=== PATIENT | male | born 1955 | race Caucasian/White ===

== ENCOUNTER 2016-12-05 10:45 | Day surgery (SDC) | payer OTHER ==
[~2016-12-05] VITALS: Ht 177.8 cm; Wt 95.4 kg
--- NOTE | ~2016-12-05 | OR ---
PATIENT'S NAME: CAROLIN PORTER [facility] AGE: 61 Y [address] ROOM: [place] [address] LOCATION: [facility] ADMIT DATE: 12/05/2016 OR/Procedure Report DISCHARGE DATE: FAMILY PHYSICIAN: J Luis Henriquez MD ATTENDING PHYSICIAN: Emily Grover SURGEON: Emily Grover MD CLOTH INSPECTOR: DATE OF PROCEDURE: 12/05/2016 PREOPERATIVE DIAGNOSES: 1. Benign prostatic hypertrophy with lower urinary tract symptoms. 2. Bladder stone. POSTOPERATIVE DIAGNOSES: 1. Benign prostatic hypertrophy with lower urinary tract symptoms. 2. Bladder stone. PROCEDURES PERFORMED: 1. Cystoscopy and lithotripsy of bladder stone. 2. TURP. ANESTHESIA: General. COMPLICATIONS: None. INDICATION FOR PROCEDURE: The patient is a 61-year-old male with prostatic enlargement, complaining of obstructive voiding symptoms. Cystoscopy revealed a 2 cm bladder stone and moderate prostatic enlargement. DETAILS OF PROCEDURE: After informed consent obtained, the patient was taken to the operating room. A general anesthetic was applied. He was placed in the dorsal lithotomy position. The groin area was prepped and draped in normal sterile fashion. Cystoscope was introduced into the urethra and bladder without difficulty. The large bladder stone was visualized. I then introduced a CyberWand, which was then used to fragment the stone into smaller pieces and also sucked out the smaller pieces. I continued this for some time until the stone was fragmented into smaller pieces. I then introduced a cystoscope and irrigated out the fragments. The patient started significant prostatic bleeding, which limited my ability to see in the bladder to check for further stones. At this point, we decided to proceed with TURP to control bleeding. We began with resection. The resectoscope sheath was introduced followed by the resectoscope. Resection was begun at the floor of the prostate down to the level of the verumontanum. I then resected lateral lobes. The patient has significant arterial bleeding, which was controlled with fulguration. I then continued further resection, but again the patient PATIENT'S NAME: CAROLIN PORTER [facility] AGE: 61 Y [address] ROOM: [place] [address] LOCATION: [facility] ADMIT DATE: 12/05/2016 OR/Procedure Report DISCHARGE DATE: FAMILY PHYSICIAN: J Luis Henriquez MD ATTENDING PHYSICIAN: Emily Grover was noted to have significant arterial bleeding, which was fulgurated. After some effort, I was able to get a good voiding channel, but because of excessive bleeding, it was decided to terminate the procedure. The bleeders were fulgurated. I then placed a 24-Swiss 3-way Brooks catheter on traction. This controlled the remaining bleeding and his urine was pink with continuous bladder irrigation. The patient tolerated this procedure well. The patient was transferred to recovery room in good condition. MD JAQUELINE JUSTICE/lissa /[id number] CC: J Luis Henriquez MD d: 12/05/16 2103 t: 12/17/16 1158, OPERATIVE SUMMARY
[~2016-12-05 10:45] MED LIST: BENADRYL25 MG PO; FLOMAX0.4 MG PO; GLUCOPHAGE1000 MG PO; HYTRIN UD5 MG PO; PRINIVIL (ZESTR20 MG PO
--- NOTE | 2016-12-06 00:31 | NUR ---
SIGNIFICANT EVENT: Patient alert & oriented. Some hypertension with pain - 133 to 155 over 62 to 70, other VSS. Started on 2L of O2 at 2114 to achieve 93%. Daisetta x2 so far this shift - last at 2099. Sanctura given at approx 2099 with noted relief. CBI running, fabian draining light pink to red urine with occasional small clots. Bedrest. ADA diet. Pleasant and cooperative with cares.
[2016-12-06 04:52] LABS: BASOPHIL # 0.1 K/uL (0.0-0.2); BASOPHIL % 0.8 %; EOSINOPHIL # 0.1 K/uL (0.0-0.5); EOSINOPHIL % 2.3 %; HEMATOCRIT 41.5 % (37.0-53.0); HEMOGLOBIN 13.9 g/dL (11.0-16.0); IMMATURE GRANULOCYTE % 0.2 %; LYMPHOCYTE # 1.8 K/uL (0.8-4.0); LYMPHOCYTE % 29.1 %; MCH 31.4 pg (27.0-34.0); MCHC 33.5 gm/dL (32.0-36.5); MCV 93.9 fl (83.0-98.0); MONOCYTE # 0.3 K/uL (0.0-1.0); MONOCYTE % 5.1 %; MPV 9.2 fl (9.4-12.4); NEUTROPHIL # (ANC) 3.8 K/uL (1.4-9.0); NEUTROPHIL % 62.5 %; NRBC % 0 /100WBC (0-0.00); PLATELET COUNT 116 K/uL (150-450); RBC 4.42 M/uL (3.50-5.50); RDW-CV 12.6 % (11.9-14.6)
[2016-12-06 05:09] LABS: ALBUMIN 2.9 gm/dL (3.5-5.0); ANION GAP 9.6 (10.0-19.0); CALCIUM 8.1 mg/dL (8.5-10.5); PHOSPHORUS 3.4 mg/dL (2.5-4.9)
[2016-12-06 05:18] LABS: POTASSIUM 4.6 mMol/L (3.7-5.1)
[2016-12-06] MEDS ORDERED: BACTRIM DS1 TAB PO (16:11)
[2016-12-06] MEDS ORDERED: NORCO 10-325 T1 EACH PO (16:12)
[2016-12-06] MEDS ORDERED: NEOSPORIN1 PKT TOP (16:13)
--- NOTE | 2016-12-06 17:56 | NUR ---
PT discharged. Verbalized understanding of catheter care and other discharge instructions. Pt belongings sent with patient. Understands signs and symptoms of infection and when to notify physician. Pt escorted to front lobby by CLINICAL PHARMACIST to awaiting car in [address].
== END 2016-12-06 17:05 | disposition disaster alternative care site (69) ==
LOC: GSDC 10:45 → GMSU 16:55 → GSDC 12-06 17:05
PROVIDERS: Urology
PROC: 0TCB8ZZ Extirpation of Matter from Bladder, Via Natural or Artificial Opening Endoscopic (ICD-10-PCS; principal; 2016-12-05)
PROC: 0VT08ZZ Resection of Prostate, Via Natural or Artificial Opening Endoscopic (ICD-10-PCS; 2016-12-05)
DX: N40.1 Benign prostatic hyperplasia with lower urinary tract symptoms (principal); N21.0 Calculus in bladder; I10 Essential (primary) hypertension; E78.2 Mixed hyperlipidemia; E11.9 Type 2 diabetes mellitus without complications; E78.1 Pure hyperglyceridemia; Z79.84 Long term (current) use of oral hypoglycemic drugs
CPT/HCPCS: J1956; J2001; J2405; J3010; J7030